=== PATIENT | male | born 1930 | race African-American/Black ===

== ENCOUNTER 2017-08-09 04:51 | Inpatient (IN) | payer OTHER ==
[~2017-08-09] VITALS: Ht 165.1 cm; Wt 67.2 kg
[2017-08-09] VITALS (23 sets, daily range): BP systolic 82–105; BP diastolic 39–70
--- NOTE | ~2017-08-09 | EEG ---
[facility] [employer] [place] [address] ELECTROENCEPHALOGRAM Name: REY TORRES Room #: 304-P [facility] IN M.R.#: [id number] Admission: 08/09/17 Attend Phys: Ceci Rich MD Discharge: 08/16/17 Date of : [birth year] Report #: [id number] THIS REPORT FOR: //name// CC: Ceci Rich DATE OF SERVICE: 08/14/2017 This patient is being evaluated for altered mental status. EEG was done by placing the electrodes by standard 10-20 system of electrode placement. Both referential and sequential montages were used for recording. A lot of artifact is present, which is muscle and movement artifact, which makes the interpretation of this EEG very difficult. The best I can tell, the background activity is about 8-9 Hz and 15 microvolts. The patient appeared to be drowsy during part of this EEG and that is associated with bilaterally symmetrical slowing and a few vertex sharp waves. Photic stimulation is unremarkable. IMPRESSION: This is a suboptimal EEG because it is intermixed with lot of artifact and it is very difficult to interpret. Small portion of the EEG, which was interpretable showed some slowing which is a nonspecific finding which can occur with dementia, encephalopathy, effect of psychotropic medication, etc. Clinical correlation is recommended. Thank you very much for this referral. <ELECTRONICALLY SIGNED> By: Willi Anaya MD 08/21/17 0624 0722 0735 MD saira Austin
--- NOTE | ~2017-08-09 | EKG ---
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
--- NOTE | ~2017-08-09 | EKG ---
[address] [address] ELECTROCARDIOGRAM REPORT Name: REY TORRES Room #: 241-P ADM IN M.R.#: [id number] Admission: 08/09/17 Attend Phys: Ceci Rich MD Discharge: Date of : [birth year] Report #: [id number] THIS REPORT FOR: //name// [facility] ED Test Date: 2017-08-09 Test Time: 06:11:59 Pat Name: REY TORRES Department: Room: 241 Gender: M [employer]: SHAZIA : 1930 Requested By: Laura Izquierdo Order Number: [id number] MD: Alejandro Lei Measurements Intervals [place] Rate: 123 P: 73 [place]: 149 QRS: -46 QRSD: 103 T: 145 QT: 336 QTc: 481 Interpretive Statements Sinus tachycardia Atrial premature complexes Left anterior fascicular block Repolarization abnormality, prob rate related Borderline prolonged QT interval No previous ECG available for comparison Electronically Signed On 08-10-2017 8:05:17 CDT by Alejandro Lei [email or web address] <ELECTRONICALLY SIGNED> By: Alejandro Lei MD, [facility] 08/10/17 0805 0 0 Alejandro Lei MD, [facility] /EPI
--- NOTE | ~2017-08-09 | HC ---
[facility] [place] [address] CONSULTATION Name: REY TORRES Room #: 241-P [facility] IN M.R.#: [id number] Admission: 08/09/17 Attend Phys: Ceci Rich MD Discharge: Date of : [birth year] Report #: [id number] THIS REPORT FOR: //name// CC: Salomón Rich REASON FOR CONSULTATION: I was asked to evaluate concerning septic shock. HISTORY OF PRESENT ILLNESS: The patient is an 87-year-old detention resident under the care of Dr. Rich. There is not much history to go along with this. Apparently, he had pulled out his Gutierrez catheter. Wound was inflated. How long he has had the Gutierrez catheter in place is not clear. He also had an episode of coffee ground emesis when he arrived to the emergency room. He had a fever of 103 degrees and he has been tachycardic and hypotensive. He received several liters of fluid intravenously during his stay in the emergency room, now in the intensive care unit. The patient does have underlying dementia and unable to give me any history. REVIEW OF SYSTEMS: Notes since his admission, there has been no diarrhea. He has had no further vomiting. He does not complain of any issues. Oxygen requirements have been at 4 liters. There has been no rash or evidence of decubiti. He has gross hematuria in his Gutierrez catheter after it was replaced. ALLERGIES: None known. MEDICATIONS: Given vancomycin and ceftriaxone in the emergency room. Other medications as noted on his MAR, which were reviewed. PAST MEDICAL HISTORY: Dementia, depression, gastroesophageal reflux, iron deficiency anemia, TIA, and coronary artery disease. FAMILY HISTORY: Not available. SOCIAL HISTORY: Not available. PHYSICAL EXAMINATION: VITAL SIGNS: Maximum temperature is 103.1, now 99.4; pulse is 125, blood pressure 91/59, respiratory rate was 21. The patient was on 4 liters of oxygen per nasal cannula. GENERAL: He was lying in bed, would respond, he does arouse. He knew he was in [place], but did not know where he was at. He did not know the year. SKIN: Unremarkable. LYMPH: Unremarkable. HEENT: Remarkable for multiple teeth extracted. He did have some . No acute abnormalities were identified. NECK: Supple, no adenopathy, no thyromegaly. LUNGS: Few crackles in the bases bilaterally. [facility] [address] [place] [address] CONSULTATION Name: REY TORRES Room #: 241-P [facility] IN M.R.#: [id number] Admission: 08/09/17 Attend Phys: Ceci Rich MD Discharge: Date of : [birth year] Report #: [id number] HEART: Regular and tachycardic. No appreciable murmur or gallop. ABDOMEN: Soft. He had a fairly large right inguinal hernia. EXTERNAL GENITALIA: Otherwise, unremarkable. Gutierrez catheter in place with gross hematuria. RECTAL: Not performed. Urology was evaluating the patient following me. EXTREMITIES: Unremarkable. LABORATORY STUDIES: Sodium 136, potassium 3.2, bicarbonate 23, creatinine 1.5, alk phos 351. Lipase 121. Lactate was 5.9. Hemoglobin 11.3, WBCs 1.7 with 74% segs, 20% lymphs, and platelet count 132,000. Chest x-ray was clear. CT scan of the head, no acute changes. Cultures of blood, urine and CSF are pending. CSF examination, 1 RBC, no WBCs, protein 41, glucose 81. IMPRESSION: An 87-year-old presents with trauma following traumatic removal of his Gutierrez catheter. Underlying dementia and presents with fever and sepsis. He has been tachycardic and more confused. There is a question whether he had a seizure in the emergency room as well. So far, there is no other evidence of underlying infection outside of the urinary tract. He only had a few wbc's, but this may be a false reading due to his neutropenia. Cause of his neutropenia is yet to be determined. Unclear as to his previous CBCs. We would recommend continuing broad antibiotic coverage for nosocomial organisms, follow up with Dr. Rich regarding his previous blood counts and duration of his urinary catheter. At age 87, we will need to discuss with durable power of senior attorney how aggressive to be with the patient if he should need invasive procedures. I have discussed the case with pulmonary medicine, internal medicine and nursing at the bedside. <ELECTRONICALLY SIGNED> By: Jonathon Bera MD 08/10/17 0916 1011 1103 Jonathon Bear MD /nt
--- NOTE | ~2017-08-09 | HC ---
[facility] [place] [address] CONSULTATION Name: REY TORRES Room #: 304-P [facility] IN ..#: [id number] Admission: 08/09/17 Attend Phys: Ceci Rich MD Discharge: Date of : [birth year] Report #: [id number] THIS REPORT FOR: //name// CC: Ceci Rich DATE OF SERVICE: 08/12/2017 HISTORY OF PRESENT ILLNESS: I have been asked to evaluate this 87-year-old male who is in the intensive care unit after having presented to the Emergency Department with temperature elevation, elevated white blood cell count and coffee-ground emesis. The patient has had long-standing Alzheimer disease, has durable power of personal injury attorney. His has Alzheimer. He became somewhat unresponsive, placed in the intensive care unit, started on sepsis protocol and was also found by CT scanning and examination to have a large right inguinal hernia with small bowel, into the scrotum. The length of this longstanding hernia is unknown. PAST MEDICAL HISTORY: Consistent with dementia; Alzheimer, longstanding; GERD; iron deficiency anemia; TIAs; coronary artery disease; depression; AMS and chronic indwelling Gutierrez catheter. PAST SURGICAL ILLNESSES: No abdominal surgery noted, unable to be obtained from the patient. SOCIAL HISTORY: Unobtainable from the patient and unknown. ALLERGIES: None listed. MEDICATIONS: Medications are multiple and unlisted except for Aricept 5 mg, Lexapro, Colace, milk of magnesia, Dulcolax tablets, Protonix, ProCel, Xanax and Mucinex. REVIEW OF SYSTEMS: Unobtainable. PHYSICAL EXAMINATION: GENERAL: The patient is stable. No arrhythmias. VITAL SIGNS: Within normal limits, resting in the ICU somewhat somnolent. LUNGS: Decreased breath sounds at the bases. CARDIAC: Regular rate and rhythm. ABDOMEN: Nondistended, nontender to palpation. There is a right inguinal hernia with small bowel extending into the scrotum. This is reducible without difficulty. NEUROLOGIC: Status is somnolent with the Alzheimer's. Oriented only to person, not place or time. DIAGNOSTIC IMPRESSION: Right inguinal hernia with small bowel, extending into [facility] [address] [place] [address] CONSULTATION Name: REY TORRES Room #: 304-P [facility] IN [facility].#: [id number] Admission: 08/09/17 Attend Phys: Ceci Rich MD Discharge: Date of : [birth year] Report #: [id number] the scrotum. This is clearly reducible inguinal hernia and is not consistent with bowel obstruction at this time. The patient does not have clinically evident bowel obstruction. I would recommend proceeding and advancing diet as tolerated and due to the patient's multiple comorbidities, I would recommend no general anesthetic with operative repair at this time. Thank you for allowing us to participate in his care. By: 1114 1240 Jeff Mack MD, FACS /nt
--- NOTE | ~2017-08-09 | HC ---
[facility] [address] CONSULTATION Name: REY TORRES Room #: 304-P [facility] IN ..#: [id number] Admission: 08/09/17 Attend Phys: Ceci Rich MD Discharge: 08/16/17 Date of : [birth year] Report #: [id number] THIS REPORT FOR: //name// CC: Ceci Rich DATE OF SERVICE: 08/09/2017 IMPRESSION: 1. Sepsis. 2. Question related to urinary tract infection. 3. History of trauma from Gutierrez removal. 4. Encephalopathy with history of dementia. 5. Neutropenia. PLAN: IV fluids, sepsis protocol and aerosol therapy. DVT and ulcer prophylaxis. HISTORY OF PRESENT ILLNESS: An 87-year-old male transferred secondary to self removal of Gutierrez catheter while Gutierrez inflated and found to have fever, hypertension and tachycardia, given IV fluids up to 3 liters at this point. The patient is unable to give history but relates "I am okay." ALLERGIES: No known. MEDICATIONS: Included Aricept, Lexapro, iron, Colace, Dulcolax, Protonix, and Xanax. PAST MEDICAL HISTORY: Includes dementia, GERD, iron efficiency, TIA, heart disease and depression. SOCIAL HISTORY: Otherwise unobtainable. FAMILY HISTORY: Otherwise unobtainable. There is a history of coronary artery disease and TIA. PHYSICAL EXAMINATION: VITAL SIGNS: T-max 103.1, pulse 120s and BP 91/59. LUNGS: Showed decreased breath sounds. HEART: Regular and tachycardic. ABDOMEN: Bowel sounds present. EXTREMITIES: Showed no edema or cyanosis. NEUROLOGICAL: Questionable seizure in the ER, tap done, noted. LABORATORY DATA: BUN 18 and creatinine 1.5. Total bilirubin 0.6 and lipase 121. WBC 1.7 and hemoglobin 11.3. [facility] [address] [place] [address] CONSULTATION Name: MELISSAREY Arti Room #: 304-P [facility]#: [id number] Admission: 08/09/17 Attend Phys: Ceci Rich MD Discharge: 08/16/17 Date of : [birth year] Report #: [id number] We will follow closely with you. <ELECTRONICALLY SIGNED> By: Farrah Cazares MD 08/17/17 0004 1551 2247 Farrah Cazares MD /nt
[2017-08-09 05:20] LABS: HEMOGLOBIN 11.3 gm/dL (14.0-18.0); MCV 92.4 fL (80.0-100.0)
[2017-08-09 05:22] LABS: MCH 29.9 pg (26.0-34.0); MCHC 32.3 g/dL (28.0-37.0); PLATELET COUNT 132 thou/uL (150-400); RBC 3.79 mil/uL (4.50-6.00); RDW 13.8 % (10.5-14.5)
[2017-08-09 05:24] LABS: MANUAL DIFF YES
[2017-08-09 05:25] LABS: WBC 1.7 thou/uL (4.0-11.0)
[2017-08-09 05:33] LABS: CALCIUM 8.4 mg/dL (8.5-10.1); CREATININE 1.5 mg/dL (0.7-1.3); POTASSIUM 3.2 mmol/L (3.5-5.1)
[2017-08-09 05:37] LABS: ALBUMIN 2.7 g/dL (3.4-5.0); DIRECT BILIRUBIN 0.2 mg/dL (<0.1-0.3); TOTAL BILIRUBIN 0.6 mg/dL (<0.1-1.0); TOTAL PROTEIN 6.6 g/dL (6.4-8.2)
[2017-08-09 06:14] LABS: URINE BILIRUBIN NEGATIVE (Negative); URINE BLOOD 3+ (Negative); URINE COLOR RED; URINE GLUCOSE-RANDOM* NEGATIVE (Negative); URINE KETONES TRACE (Negative); URINE PROTEIN (DIPSTICK) 3+ (Negative); URINE SPECIFIC GRAVITY 1.025 (1.003-1.035)
[2017-08-09 06:14] LABS: ABSOLUTE NEUTROPHILS 1.3 thou/uL (1.4-8.2); TOTAL CELL COUNT 50
[2017-08-09 06:16] LABS: URINE LEUKOCYTES-REFLEX 1+ (Negative)
[2017-08-09 06:26] LABS: CASTS None Seen /LPF (None Seen); SQUAMOUS 0-3 Few /LPF (0-3)
[2017-08-09 06:28] LABS: CRYSTALS None Seen /LPF (None Seen); URINE RBC >20 Many /HPF (0-2); URINE WBC-REFLEX 0-5 Rare /HPF (0-5)
[2017-08-09 07:25] LABS: CSF GLUCOSE 81 mg/dL (40-70); CSF PROTEIN 41 mg/dL (15-45)
[2017-08-09 07:59] LABS: CSF CLARITY CLEAR; CSF COLOR COLORLESS; CSF WBC 1 /mm3 (0-10); MANUAL DIFF NO; NUMBER OF TUBES 3; VOLUME 11 ml
[2017-08-09] MEDS ORDERED: ARICEPT 5 MG TAB5 MG PO (08:16)
[2017-08-09] MEDS ORDERED: LEXAPRO 10 MG T10 M2 PO (08:16)
[2017-08-09] MEDS ORDERED: COLACE100 MG PO (08:17)
[2017-08-09] MEDS ORDERED: IRON325 PO (08:17)
[2017-08-09] MEDS ORDERED: MILK OF MA2400 MG/10 PO (08:18)
[2017-08-09] MEDS ORDERED: DULCOLAX5 MG PO (08:18)
[2017-08-09] MEDS ORDERED: PROTONIX40 M1 PO (08:18)
[2017-08-09] MEDS ORDERED: PROCEL1 EACH PO (08:19)
[2017-08-09] MEDS ORDERED: MUCINEX600 MG PO (08:19)
[2017-08-09] MEDS ORDERED: XANAX 0.25 MG0.25 MG PO (08:19)
[2017-08-09 09:54] LABS: CALCIUM 7.5 mg/dL (8.5-10.1); CREATININE 1.5 mg/dL (0.7-1.3)
[2017-08-09 09:59] LABS: ABG SAMPLE TYPE ARTERIAL; BE(vivo) -5.8 mmol/L (-2 to +3); HCO3 18.8 mmol/L (22.0-26.0); O2(CT) 14.3 mL/dL (15.0-23.0); O2Hb 92.7 % (92.0-98.0); PCO2 33.6 mmHg (35.0-45.0); pH 7.365 (7.360-7.450); sO2 93.7 % (92.0-98.0); tCO2 19.8 mmol/L (24.0-30.0)
[2017-08-09 10:00] LABS: LACTATE 3.59 mmol/L (0.5-2.0); STICK SITE R.BRACHIAL
[2017-08-09 13:03] LABS: HEMATOCRIT 28.7 % (42.0-52.0)
[2017-08-09 13:11] LABS: CALCIUM 7.2 mg/dL (8.5-10.1); CREATININE 1.4 mg/dL (0.7-1.3); POTASSIUM 3.2 mmol/L (3.5-5.1)
[2017-08-09 13:13] LABS: HEMOGLOBIN 9.3 gm/dL (14.0-18.0)
[2017-08-09 17:32] LABS: CREATININE 1.3 mg/dL (0.7-1.3); POTASSIUM 3.8 mmol/L (3.5-5.1)
[2017-08-09 21:16] LABS: HEMATOCRIT 27.7 % (42.0-52.0)
[2017-08-10] VITALS (18 sets, daily range): BP systolic 104–143; BP diastolic 59–99
[2017-08-10 06:01] LABS: HEMATOCRIT 27.4 % (42.0-52.0)
[2017-08-10 06:02] LABS: HEMOGLOBIN 8.8 gm/dL (14.0-18.0); MCH 29.8 pg (26.0-34.0); MCHC 32.1 g/dL (28.0-37.0); MCV 92.7 fL (80.0-100.0); PLATELET COUNT 97 thou/uL (150-400); RBC 2.95 mil/uL (4.50-6.00); RDW 14.2 % (10.5-14.5)
[2017-08-10 06:07] LABS: MANUAL DIFF YES
[2017-08-10 06:09] LABS: CREATININE 1.1 mg/dL (0.7-1.3); POTASSIUM 3.4 mmol/L (3.5-5.1); TOTAL BILIRUBIN 0.8 mg/dL (<0.1-1.0); TOTAL PROTEIN 5.3 g/dL (6.4-8.2); WBC 40.1 thou/uL (4.0-11.0)
[2017-08-10 07:20] LABS: HEMOGLOBIN 8.6 gm/dL (14.0-18.0); MCH 30.6 pg (26.0-34.0); MCHC 33.2 g/dL (28.0-37.0); MCV 92.1 fL (80.0-100.0); RBC 2.82 mil/uL (4.50-6.00); RDW 14.3 % (10.5-14.5)
[2017-08-10 07:24] LABS: WBC 39.2 thou/uL (4.0-11.0)
[2017-08-10 08:35] LABS: METAMYELOCYTES 2 %; TOTAL CELL COUNT 100
[2017-08-10 08:39] LABS: ABSOLUTE NEUTROPHILS 33.3 thou/uL (1.4-8.2)
[2017-08-10 08:47] LABS: ANISOCYTOSIS 1+
[2017-08-11] VITALS (25 sets, daily range): BP systolic 101–161; BP diastolic 69–96
[2017-08-11 05:54] LABS: MCH 29.5 pg (26.0-34.0)
[2017-08-11 05:57] LABS: HEMATOCRIT 27.5 % (42.0-52.0); HEMOGLOBIN 8.8 gm/dL (14.0-18.0); MCHC 32.2 g/dL (28.0-37.0); MCV 91.4 fL (80.0-100.0); PLATELET COUNT 83 thou/uL (150-400); RDW 14.1 % (10.5-14.5)
[2017-08-11 06:04] LABS: CALCIUM 7.4 mg/dL (8.5-10.1); CREATININE 0.8 mg/dL (0.7-1.3)
[2017-08-11 06:10] LABS: POTASSIUM 2.9 mmol/L (3.5-5.1)
[2017-08-11 06:15] LABS: MANUAL DIFF YES; WBC 42.7 thou/uL (4.0-11.0)
[2017-08-11 08:33] LABS: ABSOLUTE NEUTROPHILS 40.6 thou/uL (1.4-8.2); PLATELET ESTIMATE DECREASED; TOTAL CELL COUNT 100
[2017-08-11 12:46] LABS: CALCIUM 7.6 mg/dL (8.5-10.1); CREATININE 0.7 mg/dL (0.7-1.3); POTASSIUM 3.1 mmol/L (3.5-5.1)
[2017-08-11 21:57] LABS: OBSERVED RETIC COUNT 1.24 % (0.6-2.6)
[2017-08-11 22:03] LABS: % SATURATION 15 % (20-39); IRON 41 ug/dL (65-175); TIBC 276 ug/dL (250-450); UIBC 235 ug/dL
[2017-08-11 22:31] LABS: FOLIC ACID 4.1 ng/mL (8.6-58.9)
[2017-08-12] VITALS (13 sets, daily range): BP systolic 91–143; BP diastolic 50–111
[2017-08-12 02:04] LABS: ALBUMIN 1.9 g/dL (3.4-5.0); CALCIUM 7.6 mg/dL (8.5-10.1); CREATININE 0.6 mg/dL (0.7-1.3); POTASSIUM 3.5 mmol/L (3.5-5.1); TOTAL BILIRUBIN 0.8 mg/dL (<0.1-1.0); TOTAL PROTEIN 5.4 g/dL (6.4-8.2)
[2017-08-12 05:01] LABS: HEMOGLOBIN 9.3 gm/dL (14.0-18.0); MCH 30.2 pg (26.0-34.0); MCHC 33.2 g/dL (28.0-37.0); MCV 91.1 fL (80.0-100.0); PLATELET COUNT 98 thou/uL (150-400); RBC 3.08 mil/uL (4.50-6.00); RDW 14.5 % (10.5-14.5); WBC 38.1 thou/uL (4.0-11.0)
[2017-08-12 05:15] LABS: MANUAL DIFF YES
[2017-08-12 05:58] LABS: PROTIME 10.3 Seconds (9.3-11.4)
[2017-08-12 10:15] LABS: TOTAL CELL COUNT 100
[2017-08-12 10:16] LABS: ABSOLUTE NEUTROPHILS 36.6 thou/uL (1.4-8.2); ANISOCYTOSIS 1+
[2017-08-13] VITALS (7 sets, daily range): BP systolic 117–143; BP diastolic 60–87
[2017-08-13 04:46] LABS: HEMATOCRIT 27.7 % (42.0-52.0); HEMOGLOBIN 9.2 gm/dL (14.0-18.0); MCH 30.1 pg (26.0-34.0); MCHC 33.2 g/dL (28.0-37.0); MCV 90.6 fL (80.0-100.0); PLATELET COUNT 109 thou/uL (150-400); RBC 3.06 mil/uL (4.50-6.00); RDW 14.5 % (10.5-14.5)
[2017-08-13 04:55] LABS: CALCIUM 7.5 mg/dL (8.5-10.1); CREATININE 0.6 mg/dL (0.7-1.3); POTASSIUM 3.4 mmol/L (3.5-5.1)
[2017-08-13 05:04] LABS: WBC 20.8 thou/uL (4.0-11.0)
[2017-08-13 05:05] LABS: MANUAL DIFF YES
[2017-08-13 09:33] LABS: ABSOLUTE NEUTROPHILS 18.3 thou/uL (1.4-8.2); METAMYELOCYTES 2 %; TOTAL CELL COUNT 100
[2017-08-13 09:34] LABS: ANISOCYTOSIS SLIGHT
[2017-08-14 05:31] LABS: HEMATOCRIT 27.3 % (42.0-52.0); HEMOGLOBIN 8.7 gm/dL (14.0-18.0); MCH 29.2 pg (26.0-34.0); MCV 91.3 fL (80.0-100.0); PLATELET COUNT 154 thou/uL (150-400); RBC 2.99 mil/uL (4.50-6.00); RDW 14.5 % (10.5-14.5); WBC 13.1 thou/uL (4.0-11.0)
[2017-08-14 05:43] LABS: MANUAL DIFF YES
[2017-08-14 05:49] LABS: CALCIUM 7.4 mg/dL (8.5-10.1); CREATININE 0.7 mg/dL (0.7-1.3)
[2017-08-14 05:51] LABS: POTASSIUM 3.1 mmol/L (3.5-5.1)
[2017-08-14 08:28] LABS: ABSOLUTE NEUTROPHILS 9.8 thou/uL (1.4-8.2); PLATELET ESTIMATE NORMAL; TOTAL CELL COUNT 100
[2017-08-14 11:50] VITALS: BP 154/59
[2017-08-14 15:06] LABS: HEPATITIS C VIRUS AB <0.1 (0.0-0.9)
[2017-08-14 16:29] VITALS: BP 132/73
[2017-08-14 19:23] VITALS: BP 151/78
[2017-08-15 03:29] VITALS: BP 145/72
[2017-08-15 05:33] LABS: HEMATOCRIT 27.4 % (42.0-52.0); HEMOGLOBIN 8.9 gm/dL (14.0-18.0); MCH 29.6 pg (26.0-34.0); MCHC 32.4 g/dL (28.0-37.0); MCV 91.5 fL (80.0-100.0); PLATELET COUNT 215 thou/uL (150-400); RBC 2.99 mil/uL (4.50-6.00); RDW 14.1 % (10.5-14.5); WBC 12.6 thou/uL (4.0-11.0)
[2017-08-15 05:35] LABS: MANUAL DIFF YES
[2017-08-15 05:41] LABS: CALCIUM 7.5 mg/dL (8.5-10.1); CREATININE 0.6 mg/dL (0.7-1.3); POTASSIUM 3.1 mmol/L (3.5-5.1)
[2017-08-15 07:15] VITALS: BP 136/84
[2017-08-15 09:33] LABS: PLATELET ESTIMATE NORMAL; TOTAL CELL COUNT 100
[2017-08-15 18:02] VITALS: BP 152/74
[2017-08-15 21:20] VITALS: BP 128/96
[2017-08-16 04:00] VITALS: BP 141/88
[2017-08-16 05:48] LABS: HEMATOCRIT 29.1 % (42.0-52.0); HEMOGLOBIN 9.5 gm/dL (14.0-18.0); MCH 29.5 pg (26.0-34.0); MCHC 32.5 g/dL (28.0-37.0); MCV 90.7 fL (80.0-100.0); PLATELET COUNT 288 thou/uL (150-400); RBC 3.21 mil/uL (4.50-6.00); RDW 13.8 % (10.5-14.5); WBC 12.9 thou/uL (4.0-11.0)
[2017-08-16 05:54] LABS: MANUAL DIFF YES
[2017-08-16 05:57] LABS: CALCIUM 7.7 mg/dL (8.5-10.1); CREATININE 0.6 mg/dL (0.7-1.3)
[2017-08-16] MEDS ORDERED: CEFUROXIME500 MG PO (07:37)
[2017-08-16] MEDS ORDERED: REQUIP 0.25 M0.25 MG PO (07:37)
[2017-08-16 07:54] VITALS: BP 143/73
[2017-08-16 08:41] LABS: ABSOLUTE NEUTROPHILS 10.8 thou/uL (1.4-8.2); PLATELET ESTIMATE NORMAL; TOTAL CELL COUNT 100
== END 2017-08-16 13:09 | DRG 871 ==
LOC: ER 04:51 → ICU 06:32 → EROBS 06:32 → ICU 08:30 → 4W 08-14 10:53 → 3N 08-15 19:56
PROVIDERS: Emergency Medicine; Internal Medicine; Internal Medicine Hematology & Oncology; Nurse Practitioner; Nurse Practitioner Family; Specialist; Surgery
PROC: 02H633Z Insertion of Infusion Device into Right Atrium, Percutaneous Approach (ICD-10-PCS; principal; 2017-08-09)
PROC: B244ZZZ Ultrasonography of Right Heart (ICD-10-PCS; principal; 2017-08-09)
PROC: 009U3ZX Drainage of Spinal Canal, Percutaneous Approach, Diagnostic (ICD-10-PCS; 2017-08-09)
DX: A41.59 Other Gram-negative sepsis (principal); R65.21 Severe sepsis with septic shock; J96.01 Acute respiratory failure with hypoxia; G92 Toxic encephalopathy; N39.0 Urinary tract infection, site not specified; N17.9 Acute kidney failure, unspecified; E46 Unspecified protein-calorie malnutrition; J98.11 Atelectasis; K92.2 Gastrointestinal hemorrhage, unspecified; F32.9 Major depressive disorder, single episode, unspecified; K21.9 Gastro-esophageal reflux disease without esophagitis; Z66 Do not resuscitate; I25.10 Atherosclerotic heart disease of native coronary artery without angina pectoris; G30.9 Alzheimer's disease, unspecified; F02.80 Dementia in other diseases classified elsewhere, unspecified severity, without behavioral disturbance, psychotic disturbance, mood disturbance, and anxiety; K40.90 Unilateral inguinal hernia, without obstruction or gangrene, not specified as recurrent; K59.00 Constipation, unspecified; E87.6 Hypokalemia; D69.6 Thrombocytopenia, unspecified; D64.9 Anemia, unspecified; R33.9 Retention of urine, unspecified; Z86.73 Personal history of transient ischemic attack (TIA), and cerebral infarction without residual deficits; Z68.24 Body mass index [BMI] 24.0-24.9, adult
CPT/HCPCS: 10045; 10078; 10096; 27000